=== PATIENT | male | born 1965 | race Caucasian/White ===

== ENCOUNTER 2017-12-06 22:15 | Emergency (ER) | payer BC, OTHER ==
[2017-12-07] MEDS: BENOXINATE/FLUORESCEIN DROPS RIGHT EYE (00:56)
== END 2017-12-07 01:46 | disposition home or self-care (01) ==
LOC: FTE 22:15
DX: S05.01XA Injury of conjunctiva and corneal abrasion without foreign body, right eye, initial encounter (principal); X58.XXXA Exposure to other specified factors, initial encounter; Y92.9 Unspecified place or not applicable
CPT/HCPCS: 76536; 99284-25

== ENCOUNTER → 2017-12-08 | Outpatient (CLI) | payer BC | END | disposition home or self-care (01) | LOC: RAD 10:57 | DX: T15.91XA Foreign body on external eye, part unspecified, right eye, initial encounter (principal) | CPT/HCPCS: 70200 ==